=== PATIENT | female | born 1955 | race Caucasian/White ===

== ENCOUNTER 2019-11-17 12:57 | Outpatient (CLI) | payer BC ==
--- NOTE | 2019-12-02 16:10 | MMO ---
Bilateral MAMMO Bilat Screen [facility]. CLINICAL HISTORY: Patient is 64 years old and is seen for screening. The patient has the following family history of breast cancer: paternal aunt, at age 60, malignant (generic). The patient has no personal history of cancer. The patient has a history of Breast reduction in September,. VIEWS: The views performed were: bilateral craniocaudal with tomosynthesis and bilateral mediolateral oblique with tomosynthesis. FILMS COMPARED: The present examination has been compared to prior imaging studies performed at [facility] on 01/25/2010 and 05/16/2012. This study has been interpreted with the assistance of computer-aided detection. MAMMOGRAM FINDINGS: There are scattered fibroglandular densities. Finding 1: There are stable benign appearing calcifications seen in both breasts. Finding 2: There is an intramammary lymph node measuring 5 millimeters seen in the anterior region of the right breast at 12 o'clock. There are no suspicious masses, suspicious calcifications, or new areas of architectural distortion. IMPRESSION: THERE IS NO MAMMOGRAPHIC EVIDENCE OF MALIGNANCY. A ROUTINE FOLLOW-UP MAMMOGRAM IN 1 YEAR IS RECOMMENDED. THE RESULTS OF THIS EXAM WERE SENT TO THE PATIENT. ACR BI-RADS Category 2 - Benign finding MAMMOGRAPHY NOTE: 1. A negative mammogram report should not delay a biopsy if a dominant of clinically suspicious mass is present. 2. Approximately 10% to 15% of breast cancers are not detected by mammography. 3. Adenosis and dense breasts may obscure an underlying neoplasm. Reported by: CARLOS SANFORD MD Electonically Signed: [id number]
== END 2019-11-17 12:58 | disposition home or self-care (01) ==
LOC: BICMAMMO 12:57
PROVIDERS: ATTEND Family Medicine
DX: Z12.31 Encounter for screening mammogram for malignant neoplasm of breast (principal); Z80.3 Family history of malignant neoplasm of breast; Z98.890 Other specified postprocedural states
CPT/HCPCS: 77063; 77067

== ENCOUNTER 2021-09-20 14:04 | Outpatient (CLI) | payer MEDICARE, BC | END 2021-09-20 14:05 | disposition home or self-care (01) | LOC: BICMAMMO 14:04 | PROVIDERS: ATTEND Family Medicine | DX: Z12.31 Encounter for screening mammogram for malignant neoplasm of breast (principal); Z13.820 Encounter for screening for osteoporosis; Z98.890 Other specified postprocedural states; Z80.3 Family history of malignant neoplasm of breast; Z78.0 Asymptomatic menopausal state | CPT/HCPCS: 77063; 77067; 77080 ==

== ENCOUNTER 2023-07-23 12:14 | Outpatient (CLI) | payer MEDICARE, BC | END 2023-07-23 12:15 | disposition home or self-care (01) | LOC: BICMAMMO 12:14 | PROVIDERS: ATTEND Student in an Organized Health Care Education/Training Program | DX: Z12.31 Encounter for screening mammogram for malignant neoplasm of breast (principal); Z80.3 Family history of malignant neoplasm of breast; Z98.82 Breast implant status | CPT/HCPCS: 77063; 77067 ==

== ENCOUNTER 2024-01-08 14:36 | Outpatient (CLI) | payer MEDICARE | END 2024-01-08 14:37 | disposition home or self-care (01) | LOC: BICRAD 14:36 | PROVIDERS: ATTEND Family Medicine | DX: M79.644 Pain in right finger(s) (principal); M19.041 Primary osteoarthritis, right hand; M79.89 Other specified soft tissue disorders ==

== ENCOUNTER 2024-09-30 13:25 | Outpatient (CLI) | payer MEDICARE | END 2024-09-30 13:26 | disposition home or self-care (01) | LOC: BICMAMMO 13:25 | PROVIDERS: ATTEND Family Medicine | DX: N63.24 Unspecified lump in the left breast, lower inner quadrant (principal) | CPT/HCPCS: 76642; 77066; G0279 ==